=== PATIENT | male | born 1970 | race Caucasian/White ===

== ENCOUNTER 2022-08-03 17:58 | Emergency (ER) | payer BC, MEDICAID, SELFPAY ==
[2022-08-03 18:14] VITALS: BP 191/99; PULSE 120; RESP 16; TEMP 36.9; O2SAT 99; BMI 49.9
--- NOTE | 2022-08-03 20:08 | CTR_ITS ---
PROCEDURE INFORMATION: Exam: CT Head Without Contrast Exam date and time: 08/03/2022 8:44 PM Age: 51 years old Clinical indication: Injury or trauma; Abrasion and blunt trauma (contusions or hematomas); Forehead; Patient HX: Fall tonight. Has hematoma with abrasion to left temporal. TECHNIQUE: Imaging protocol: Computed tomography of the head without contrast. Radiation optimization: All CT scans at this facility use at least one of these dose optimization techniques: automated exposure control; mA and/or kV adjustment per patient size (includes targeted exams where dose is matched to clinical indication); or iterative reconstruction. COMPARISON: No relevant prior studies available. RADIATION DOSE METRICS: Total DLP (mGy-cm): 1076.38 FINDINGS: Brain: No focal hemorrhage or midline shift is identified. Cerebral ventricles: No ventriculomegaly or evidence of acute hydrocephalus. Paranasal sinuses: The partially assessed sinuses are grossly clear. Mastoid air cells: Visualized mastoid air cells are well aerated. Bones/joints: No displaced skull fracture is noted. Soft tissues: Moderate-sized left forehead hematoma. CT/CT head wo con* [id number] IMPRESSION: 1. No focal hemorrhage or midline shift. 2. Left forehead hematoma.
--- NOTE | 2022-08-03 20:12 | W.ED.HEATRA ---
HPI - Head Injury General: Chief complaint: Head Injury Stated complaint: syncope, head injury Time Seen by Provider: 08/03/22 20:08 Source: patient Mode of arrival: ambulatory Limitations: no limitations History of Present Illness: 51-year-old male states he had a coughing episode and passed out during it and hit his head he does have an abrasion to his left forehead states this happened prior to arrival he does have a headache he rates a 5 out of 10 denies any other injuries denies any neck pain states has had multiple syncopal events in the past this is not uncommon for him Associated symptoms: Reports syncope; Deny nausea, neck pain or vomiting Review of Systems Const: Denies: fever(s), chills, body aches or change in appetite Eyes: Denies: blurry vision or eye discomfort ENMT: Denies: throat pain or dental pain Card: Reports: syncope; Denies: chest pain Resp: Denies: dyspnea GI: Denies: abdominal pain, nausea, vomiting or diarrhea : Denies: dysuria Musc: Denies: neck pain or back pain Skin/Breast: Denies: rash Neuro: Denies: headache(s) Psych: Denies: depression Adarsh/Lymph: Denies: easy bruising All/Imm: Denies: urticaria PFSH ED PFSH: Medical History (Updated 08/03/22 @ 21:31 by Roopa Patel MD) No pertinent past medical history Social History (Updated 08/03/22 @ 20:14 by Roopa Patel MD) Substance/Drug Use: never Physical Exam Const: COMMON NORMALS: no acute distress, patient oriented x3 and healthy appearing HENMT: COMMON NORMALS: normocephalic HEAD & SCALP: normocephalic OTHER: Abrasion to left forehead Eye: COMMON NORMALS: Equal, round and reactive pupils present and EOMs intact bilaterally PUPIL: Yes Equal, round and reactive pupils present Neck/C-Spine: COMMON NORMALS: full ROM and supple Chest: COMMONS NORMALS: normal inspection of the chest and normal palpation of entire chest wall Resp: COMMON NORMALS: normal respiratory effort, No retractions, No use of accessory muscles and clear to auscultation bilaterally AUSCULTATION: clear to auscultation bilaterally Cardio: COMMON NORMALS: regular rate, regular rhythm and No murmurs present (Cardio) RATE: regular rate RHYTHM: regular rhythm GI: COMMON NORMALS: Normal to inspection, nondistended, normoactive bowel sounds present, Soft to palpation, non-tender and no masses PALPATION: Yes Soft to palpation Extremity: COMMON NORMALS: normal to inspection and full ROM Neuro: COMMON NORMALS: patient oriented x3, moves all extremities and no focal motor deficits Psych: COMMON NORMALS: mental status grossly normal, Normal thought process present and cooperative THOUGHT PROCESS: Normal thought process present Skin: COMMON NORMALS: no rashes or lesions noted and no wounds GENERAL SKIN EXAM: no rashes or lesions noted Course Vital Signs: Vital signs: Vital Signs Temperature 98.4 F 08/03/22 18:14 Pulse Rate 112 H 08/03/22 20:18 Respiratory Rate 12 08/03/22 20:18 Blood Pressure 153/109 08/03/22 20:18 Pulse Oximetry 96 08/03/22 20:18 Oxygen Delivery Me thod 08/03/22 20:18 MDM - Head Injury Medcial Decision Making Patient presents here with a syncopal event likely from coughing he has a abrasion to his head where he hit his head his head CT here is normal EKG is normal as well he is stable for discharge we will get him follow-up with the PCP he is return if worsening. Lab Data Radiology Impressions Head CT 08/03/22 20:08 IMPRESSION: 1. No focal hemorrhage or midline shift. 2. Left forehead hematoma. Discharge Plan Discharge Patient Disposition: Home Clinical Impression: Syncope, Head injury Discharge Orders: Discharge ED (Routine); Ordered 08/03/22 Ordered By: Roopa Patel Discharge Diet: Advance as tolerated Discharge Activity: Resume usual activity Patient Instructions: Syncope (ED), Head Injury (ED) Coding Level of Care Code ED Plywood Patcher for Chg Fwd Exam Comprehensive
[2022-08-03 20:18] VITALS: BP 153/109; PULSE 112; RESP 12; O2SAT 96
--- NOTE | 2022-08-03 20:41 | ECG_ITS ---
[facility] Test Date: 2022-08-03 Pat Name: Kaushal Ortiz Department: Room: Gender: Male Timing Inspector: : 1970 Requested By: Deep Whittington Order Number: [id number] Darrell MD: Lewis Oneal M.D. Measurements Intervals Logan Rate: 116 P: 12 NH: 129 QRS: 62 QRSD: 86 T: 23 QT: 307 QTc: 427 Interpretive Statements SINUS TACHYCARDIA WITH OCCASIONAL VENTRICULAR PREMATURE COMPLEXES NONSPECIFIC ST & T-WAVE ABNORMALITY ABNORMAL RHYTHM ECG No previous ECG available for comparison Electronically Signed On 08-05-2022 0:09:33 COMMUNICATIONS TECH by Lewis Oneal M.D. [id number]
[2022-08-03 21:50] VITALS: BP 183/106; PULSE 99; RESP 16; O2SAT 96
--- NOTE | 2022-08-04 10:38 | DCPLANNER ---
manager behavior had message to speak with patient about getting established with a primary care physician. manager behavior called patient, unable to speak with patient at this time and unable to leave a voicemail.
== END 2022-08-03 22:05 | disposition home or self-care (01) ==
PROVIDERS: Emergency Provider Emergency Medicine
DX: S00.81XA Abrasion of other part of head, initial encounter (principal); S09.90XA Unspecified injury of head, initial encounter; R55 Syncope and collapse; W19.XXXA Unspecified fall, initial encounter
CPT/HCPCS: 70450; 93005; 99284

== ENCOUNTER 2024-01-11 19:02 | Emergency (ER) | payer BC, MEDICAID, SELFPAY ==
[2024-01-11 19:07] VITALS: BP 166/89; PULSE 103; RESP 14; TEMP 36.6; O2SAT 96
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
[2024-01-11] MEDS: tetanus-dipt-pertussis 0.5 mL SDV IM (19:18)
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
[2024-01-11] MEDS: lidocaine 2% INJ 20 mL INJECTION (19:22)
[2024-01-11 21:04] VITALS: BP 159/70; PULSE 91; RESP 18; O2SAT 97
== END 2024-01-11 21:07 | disposition home or self-care (01) ==
PROVIDERS: Emergency Provider Physician Assistant; PCP Family Medicine
DX: S51.011A Laceration without foreign body of right elbow, initial encounter (principal); Z23 Encounter for immunization; V86.55XA Driver of 3- or 4- wheeled all-terrain vehicle (ATV) injured in nontraffic accident, initial encounter
CPT/HCPCS: 12004; 73080; 90471; 90715; 99283

== ENCOUNTER 2025-07-11 09:51 | Emergency (ER) | payer OTHER, SELFPAY ==
[2025-07-11 09:52] VITALS: BP 189/109; PULSE 119; RESP 25; TEMP 37.1; O2SAT 99; BMI 37.4
--- NOTE | 2025-07-11 10:00 | XR_ITS ---
WS: [id number] XR shoulder LT min 2V* [id number] REASON FOR EXAM: trauma FINDINGS: Anterior dislocation of the humerus with surgical neck fracture, with small comminuted fragments and displacement of the greater biceps tuberosity fragment. XR/XR shoulder LT min 2V* [id number] IMPRESSION: Fracture dislocation of the left shoulder.
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
[2025-07-11 11:10] VITALS: BP 189/109; PULSE 86; RESP 20; O2SAT 98
--- NOTE | 2025-07-11 11:12 | XRR_ITS ---
PROCEDURE INFORMATION: Exam: XR Left Shoulder Exam date and time: 07/11/2025 11:12 AM Age: 54 years old Clinical indication: Screening exam; Post reduction; Additional info: Reduction left shoulder TECHNIQUE: Imaging protocol: Radiologic exam of the left shoulder. Views: 2 or more views. COMPARISON: CR XR shoulder LT min 2V* [id number] 07/11/2025 10:08 AM FINDINGS: Bones/joints: Status post interval reduction of the previously seen anterior glenohumeral joint dislocation. Alignment now anatomic. Comminuted, displaced fracture of the proximal humerus, predominantly involving the greater humeral tuberosity. Mild glenohumeral and acromioclavicular osteoarthrosis. Soft tissues: Mild soft tissue swelling. XR/XR shoulder LT 1V [id number] IMPRESSION: 1. Status post interval reduction of the previously seen anterior glenohumeral joint dislocation. 2. Comminuted, displaced fracture of the proximal humerus, predominantly involving the greater humeral tuberosity. 3. Additional findings, as above.
--- NOTE | 2025-07-11 11:13 | CTR_ITS ---
PROCEDURE INFORMATION: Exam: CT Left Upper Extremity Without Contrast, Shoulder Exam date and time: 07/11/2025 11:38 AM Age: 54 years old Clinical indication: Injury or trauma; Fall; Fracture, traumatic injury; Closed fracture; Humerus; Left; Additional info: Fracture. Ortho request TECHNIQUE: Imaging protocol: Computed tomography of the left upper extremity without contrast. Exam focused on the shoulder. Axial, coronal and sagittal reformatted images were created and reviewed. Radiation optimization: All CT scans at this facility use at least one of these dose optimization techniques: automated exposure control; mA and/or kV adjustment per patient size (includes targeted exams where dose is matched to clinical indication); or iterative reconstruction. COMPARISON: CR XR shoulder LT 1V [id number] 07/11/2025 11:12 AM RADIATION DOSE METRICS: Total DLP (mGy-cm): 489.1 FINDINGS: Bones/joints: Comminuted, displaced fracture of the greater humeral tuberosity. No dislocation. Mild glenohumeral and acromioclavicular osteoarthrosis. Large lipohemarthrosis. Soft tissues: Soft tissue swelling. Subacromial/subdeltoid bursitis. CT/CT shoulder LT wo con* [id number] IMPRESSION: 1. Comminuted, displaced fracture of the greater humeral tuberosity. 2. Large lipohemarthrosis. 3. Additional findings, as above.
[2025-07-11 11:16] VITALS: BP 171/99; PULSE 93; RESP 16; O2SAT 96
[2025-07-11] MEDS: ondansetron 2 mg/ML SDV 2 mL 4 MG IVP (11:21)
[2025-07-11] MEDS: propofol 10 mg/mL SDV 20 mL 150 MG IVP (11:25)
[2025-07-11 12:06] VITALS: BP 155/97; PULSE 86; O2SAT 96
[2025-07-11] MEDS: morphine 4 mg/mL SDV 1 mL 2 MG IVP (12:24)
[2025-07-11 13:06] VITALS: BP 155/94; PULSE 102; O2SAT 95
== END 2025-07-11 13:07 | disposition home or self-care (01) ==
PROVIDERS: Emergency Provider Emergency Medicine; PCP Family Medicine
DX: S42.252A Displaced fracture of greater tuberosity of left humerus, initial encounter for closed fracture (principal); S42.202A Unspecified fracture of upper end of left humerus, initial encounter for closed fracture; W13.2XXA Fall from, out of or through roof, initial encounter; S43.005A Unspecified dislocation of left shoulder joint, initial encounter
CPT/HCPCS: 23665; 36415; 73020; 73030; 73200; 94799; 96361; 96374; 96375; 99152; 99285; J2270; J2405; J2704; J7040

== ENCOUNTER → 2025-07-24 13:51 | Outpatient (BNVA) | payer OTHER, SELFPAY | PROVIDERS: PCP Family Medicine; Visit Provider Orthopaedic Surgery | DX: S42.202A Unspecified fracture of upper end of left humerus, initial encounter for closed fracture (principal); W19.XXXA Unspecified fall, initial encounter | CPT/HCPCS: 73030 ==

== ENCOUNTER → 2025-08-21 15:03 | Outpatient (BNVA) | payer OTHER, SELFPAY | PROVIDERS: PCP Family Medicine; Visit Provider Orthopaedic Surgery | DX: S42.252D Displaced fracture of greater tuberosity of left humerus, subsequent encounter for fracture with routine healing (principal); W13.2XXD Fall from, out of or through roof, subsequent encounter | CPT/HCPCS: 73030 ==